=== PATIENT | male | born 1980 | race Caucasian/White ===

== ENCOUNTER → 2017-09-19 | Outpatient (CLI) | payer BC ==
[~2017-09-19] MED LIST: ACE INHIBITOR; ANAPROX DS550 MG PO; BENADRYL25 MG PO; BP PILL; CLARITIN10 MG PO; METAMUCIL1 WAF PO; NASONEX0.05 MG/AC NAS; PREDNICOT20 MG PO; PROVENTIL0.09 MG/AC IH; ZITHROMAX Z PA250 MG PO; ZYRTEC10 MG PO
== END | disposition home or self-care (01) ==
LOC: RAD 16:20
DX: M51.37 Other intervertebral disc degeneration, lumbosacral region (principal); M85.80 Other specified disorders of bone density and structure, unspecified site

== ENCOUNTER → 2020-05-18 | Outpatient (CLI) | payer BC | END | disposition home or self-care (01) | LOC: COVID19 11:11 | PROVIDERS: ATTEND Family Medicine | DX: Z20.822 Contact with and (suspected) exposure to COVID-19 (principal) ==

== ENCOUNTER 2021-05-12 19:25 | Emergency (ER) | payer BC ==
[~2021-05-12] VITALS: Ht 190.5 cm; Wt 127.9 kg
[2021-05-13] MEDS ORDERED: LEVOFLOXACIN750 M2 PO (01:19)
== END 2021-05-13 01:36 | disposition home or self-care (01) ==
LOC: ED 19:25
DX: J18.9 Pneumonia, unspecified organism (principal); Z20.822 Contact with and (suspected) exposure to COVID-19

== ENCOUNTER 2024-01-28 18:53 | Emergency (ER) | payer OTHER ==
[~2024-01-28] VITALS: Ht 190.5 cm; Wt 90.7 kg
[~2024-01-28 18:53] MED LIST changes: +CIPRO500 MG PO; +LEVOFLOXACIN750 M2 PO
[2024-01-28] MEDS ORDERED: Acetaminophen/Hydrocodone ES 7.5/325 tablet PO ONE (19:15)
[2024-01-28] MEDS ORDERED: Ondansetron Hydrochloride 4 MG TAB SL ONE (19:15)
== END 2024-01-28 19:26 | disposition home or self-care (01) ==
LOC: ED 18:53
DX: S00.411A Abrasion of right ear, initial encounter (principal); X58.XXXA Exposure to other specified factors, initial encounter; Y93.E8 Activity, other personal hygiene; Y92.009 Unspecified place in unspecified non-institutional (private) residence as the place of occurrence of the external cause; Y99.8 Other external cause status